=== PATIENT | female | born 2000 | race Caucasian/White ===

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

== ENCOUNTER 2020-03-14 10:57 | Emergency (ER) | payer MEDICAID ==
[~2020-03-14] VITALS: Ht 170.2 cm; Wt 59.6 kg
[2020-03-14 11:05] VITALS: BP 111/78
== END 2020-03-14 12:44 | disposition home or self-care (01) ==
LOC: ER 10:58
DX: M77.8 Other enthesopathies, not elsewhere classified (principal); M79.671 Pain in right foot; Z98.890 Other specified postprocedural states; Z79.899 Other long term (current) drug therapy
CPT/HCPCS: 73630; 99283

== ENCOUNTER 2020-12-18 10:46 | Emergency (ER) | payer MEDICAID ==
[~2020-12-18] VITALS: Ht 170.2 cm; Wt 59.1 kg
[2020-12-18 10:48] VITALS: BP 142/87
== END 2020-12-18 13:35 | disposition home or self-care (01) ==
LOC: ER 10:48
DX: M25.531 Pain in right wrist (principal); Z98.890 Other specified postprocedural states; Z79.899 Other long term (current) drug therapy
CPT/HCPCS: 29125; 99283

== ENCOUNTER 2021-06-23 17:11 | Emergency (ER) | payer MEDICAID ==
[~2021-06-23] VITALS: Ht 170.2 cm; Wt 60.0 kg
[2021-06-23 17:19] VITALS: BP 128/83
== END 2021-06-23 19:03 | disposition home or self-care (01) ==
LOC: ER 17:12
DX: R89.1 Abnormal level of hormones in specimens from other organs, systems and tissues (principal)
CPT/HCPCS: 36415; 84702; 99283

== ENCOUNTER 2021-07-01 20:48 | Emergency (ER) | payer MEDICAID ==
[~2021-07-01] VITALS: Ht 170.2 cm; Wt 59.1 kg
[2021-07-01 22:57] LABS: CLARITY,URINE CLEAR (Clear); COLOR,URINE YELLOW (Yellow); GLUCOSE, URINE NEGATIVE (Neg); KETONES,URINE NEGATIVE (Neg); LEUKOCYTE ESTERASE ,URINE NEGATIVE (Neg); NITRITES, URINE NEGATIVE (Neg); OCCULT BLOOD,URINE MODERATE (Neg); PROTEIN,URINE NEGATIVE (Neg); UROBILINOGEN,URINE 0.2 E.U/dL (0.2-1.0)
[2021-07-01 22:58] LABS: BASOPHILS # (AUTO) 0.1 X10'3 (0-0.2); BASOPHILS % (AUTO) 0.8 % (0-1); EOSINOPHILS # (AUTO) 0.3 X10'3 (0-0.9); EOSINOPHILS % (AUTO) 3.1 % (0-6); HEMATOCRIT 33.1 % (35.0-45.0); HEMOGLOBIN 11.2 g/dl (12.0-16.0); LYMPHOCYTES # (AUTO) 3.7 X10'3 (1.1-4.8); LYMPHOCYTES % (AUTO) 43.7 % (21-51); MEAN CORPUSCULAR HEMOGLOBIN 28.1 PG (27.0-31.0); MEAN CORPUSCULAR HGB CONC 33.9 g/dL (33.0-36.5); MEAN PLATELET VOLUME 8.9 FL (7.4-10.4); MONOCYTES # (AUTO) 1.1 X10'3 (0-0.9); MONOCYTES % (AUTO) 13.3 % (2-12); NEUTROPHILS # (AUTO) 3.3 X10'3 (1.8-7.7); NEUTROPHILS % (AUTO) 39.1 % (42-75); PLATELET COUNT 378 X10'3 (140-440); RED BLOOD COUNT 3.99 X10'6 (4.20-5.60); RED CELL DISTRIBUTION WIDTH 14.1 % (11.5-14.5); WHITE BLOOD COUNT 8.4 X10'3 (4.5-11.0)
[2021-07-01 23:02] LABS: HCG SERUM QL POSITIVE
[2021-07-01 23:05] LABS: ALANINE AMINOTRANSFERASE 14 U/L (12-78); ALBUMIN 3.7 G/DL (3.4-5.0); ALBUMIN/GLOBULIN RATIO 1.1 (1.1-1.5); ALKALINE PHOSPHATASE 76 IU/L (20-180); ANION GAP 10 (8-16); ASPARTATE AMINO TRANSFERASE 12 U/L (10-37); BILIRUBIN,TOTAL 0.3 MG/DL (0.1-1.0); BLOOD UREA NITROGEN 8 MG/DL (7-18); BUN/CREATININE RATIO 11.8 (6.6-38.0); CALCIUM 8.7 MG/DL (8.5-10.1); CHLORIDE 111 MMOL/L (99-107); CREATININE 0.68 MG/DL (0.40-0.90); GLUCOSE 100 MG/DL (70-104); POTASSIUM 3.7 MMOL/L (3.5-5.1); SODIUM 145 MMOL/L (135-145); TOTAL CARBON DIOXIDE 23.9 MMOL/L (24-32); TOTAL PROTEIN 7.2 G/DL (6.4-8.2); eGFR > 90 ML/MIN
[2021-07-01 23:08] LABS: UA COLLECTION TYPE CLN CATCH MIDSTREAM; WBC,URINE 0-4 /HPF (0-4)
[2021-07-01 23:09] LABS: BACTERIA,URINE 1+ /HPF (Neg); SQUAMOUS EPITHELIAL CELL,UR FEW /LPF (FEW)
[2021-07-01 23:10] LABS: MUCUS STRANDS MODERATE /LPF (Neg)
[2021-07-01 23:11] LABS: BETA HCG,QUANTITATIVE 12 mIU/ml
[2021-07-01 23:39] VITALS: BP 126/74
== END 2021-07-01 23:41 | disposition home or self-care (01) ==
LOC: ER 20:49
DX: O20.0 Threatened abortion (principal); N93.8 Other specified abnormal uterine and vaginal bleeding; M54.50 Low back pain, unspecified; Z3A.01 Less than 8 weeks gestation of pregnancy; Z98.890 Other specified postprocedural states; Z79.899 Other long term (current) drug therapy
CPT/HCPCS: 36415; 76801; 76817; 80053; 81001; 84702; 84703; 85025; 99284

== ENCOUNTER 2021-09-20 07:02 | Emergency (ER) | payer MEDICAID ==
[~2021-09-20] VITALS: Ht 170.2 cm; Wt 59.1 kg
[2021-09-20 07:08] VITALS: BP 137/94
[2021-09-20] MEDS ORDERED: ampicillin/sulbac 3gm/NS 100ml 100 ML IV STA (07:28)
[2021-09-20] MEDS ORDERED: ketorolac trometh. 30mg/ml inj. IV ONE (07:30)
[2021-09-20] MEDS ORDERED: AMOX-580 PO (08:32)
== END 2021-09-20 08:50 | disposition home or self-care (01) ==
LOC: ER 07:02
DX: L03.113 Cellulitis of right upper limb (principal); Z98.890 Other specified postprocedural states; Z79.899 Other long term (current) drug therapy
CPT/HCPCS: 96365; 96375; 99284; J0295; J1885

== ENCOUNTER 2021-09-21 21:33 | Emergency (ER) | payer MEDICAID ==
[~2021-09-21] VITALS: Ht 170.2 cm; Wt 59.1 kg
[~2021-09-21 21:33] MED LIST changes: +AMOX-580 PO
[2021-09-21 22:07] VITALS: BP 130/85
== END 2021-09-21 22:59 | disposition home or self-care (01) ==
LOC: ER 21:33
DX: S61.451D Open bite of right hand, subsequent encounter (principal); Z79.899 Other long term (current) drug therapy; W55.01XD Bitten by cat, subsequent encounter
CPT/HCPCS: 99281; 99282

== ENCOUNTER 2021-09-23 14:56 | Emergency (ER) | payer MEDICAID ==
[~2021-09-23] VITALS: Ht 170.2 cm; Wt 59.1 kg
[2021-09-23 15:16] VITALS: BP 139/90
== END 2021-09-23 16:32 | disposition home or self-care (01) ==
LOC: ER 14:58
DX: L03.113 Cellulitis of right upper limb (principal); Z79.2 Long term (current) use of antibiotics; Z79.899 Other long term (current) drug therapy
CPT/HCPCS: 99281

== ENCOUNTER 2023-04-29 16:05 | Emergency (ER) | payer MEDICAID ==
[~2023-04-29] VITALS: Ht 170.2 cm; Wt 60.7 kg
[~2023-04-29 16:05] MED LIST changes: -AMOX-580 PO
[2023-04-29 18:55] VITALS: BP 110/60; PULSE 71; RESP 17; TEMP 98.8; O2SAT 99
== END 2023-04-29 18:40 | disposition home or self-care (01) ==
LOC: ER 16:07
DX: O20.0 Threatened abortion (principal); Z79.899 Other long term (current) drug therapy
CPT/HCPCS: 36415; 84702; 86900; 86901; 99283

== ENCOUNTER 2023-05-01 16:26 | Emergency (ER) | payer MEDICAID ==
[~2023-05-01] VITALS: Ht 170.2 cm; Wt 59.1 kg
[2023-05-01 18:35] VITALS: BP 148/80; PULSE 104; RESP 16; TEMP 99; O2SAT 100
== END 2023-05-01 18:37 | disposition home or self-care (01) ==
LOC: ER 16:26
DX: O20.0 Threatened abortion (principal); Z3A.00 Weeks of gestation of pregnancy not specified; Z79.899 Other long term (current) drug therapy
CPT/HCPCS: 36415; 84702; 99283